=== PATIENT | female | born 1935 | race Two or more races ===

== ENCOUNTER 2018-04-23 10:55 | Emergency (ER) | payer OTHER ==
[~2018-04-23] VITALS: Ht 157.5 cm; Wt 59.4 kg
[2018-04-23] MEDS ORDERED: ATORVASTATIN CA10 MG (11:09)
[2018-04-23] MEDS ORDERED: TENORMIN25 MG (11:09)
[2018-04-23] MEDS ORDERED: CITALOPRAM HBR20 MG (11:10)
[2018-04-23] MEDS ORDERED: ASA81 MG (11:10)
[2018-04-23] MEDS ORDERED: NORVASC5 MG (11:10)
[2018-04-23] MEDS ORDERED: LEVOTHYROXINE50 MCG (11:10)
== END 2018-04-23 14:55 | disposition home or self-care (01) ==
LOC: ER 10:55
DX: J11.1 Influenza due to unidentified influenza virus with other respiratory manifestations (principal)